=== PATIENT | male | born 1980 | race Caucasian/White ===

== ENCOUNTER 2017-08-30 19:14 | Emergency (ER) | payer MEDICAID ==
[~2017-08-30] VITALS: Ht 170.2 cm; Wt 68.0 kg
[~2017-08-30 19:14] MED LIST: IBUP-1636
[2017-08-30] MEDS ORDERED: LIDOCAINE HCL 1% 20ML VIAL (Pyxis) INJ INFIL ONE (22:00)
[2017-08-30] MEDS ORDERED: LIDOCAINE HCL 1% 20ML VIAL (Pyxis) INJ INFIL SCH (22:15)
[2017-08-30] MEDS ORDERED: PIPERACILLIN/TAZ 3.375G PREMIX 50 ML IV ONE (22:30)
[2017-08-30] MEDS ORDERED: VANCOMYCIN 1 G PREMIX 200 ML IV ONE (22:30)
[2017-08-30] MEDS ORDERED: SODIUM CHLORIDE 0.9% 1,000 ML IV ONE (22:30)
[2017-08-30 23:26] LABS: CHLORIDE 109 mEq/L (98-107)
[2017-08-31 00:02] LABS: EOSINOPHILS % 1.9 % (0.0-5.0); HEMOGLOBIN. 15.1 g/dL (14.0-18.0); MEAN CORPUSCULAR HEMOGLOBIN 36.6 pg (28.0-32.0); MEAN CORPUSCULAR VOLUME 102.2 fL (80.0-94.0); MEAN PLATELET VOLUME 8.3 fl (7.4-10.4); MONOCYTES % 9.2 % (2.0-8.0); NEUTROPHILS % 54.7 % (40.0-76.0); PLATELET 349 x1000/uL (130-400); RED BLOOD CELL COUNT 4.11 mill/uL (4.7-6.1); RED CELL DISTRIBUTION WIDTH 14.4 % (11.6-14.6)
[2017-08-31 00:03] LABS: BASOPHILS % 0.2 % (0.0-2.0)
[2017-08-31 00:25] VITALS: BP 145/97
[2017-08-31] MEDS ORDERED: LORATADINE 10MG TABLET PO SCH (09:00)
== END 2017-08-31 02:56 | disposition left against medical advice (07) ==
LOC: ER 19:14
DX: L03.115 Cellulitis of right lower limb (principal); L02.414 Cutaneous abscess of left upper limb; F17.200 Nicotine dependence, unspecified, uncomplicated; F15.10 Other stimulant abuse, uncomplicated
CPT/HCPCS: 10060; 36415; 80053; 85025; 87040; 96365; 96366; 96368; 99285; J2543; J3370; J3490; J7030

== ENCOUNTER 2017-08-31 17:34 | Emergency (ER) | payer MEDICAID ==
[~2017-08-31] VITALS: Ht 170.2 cm; Wt 73.0 kg
[2017-08-31 17:45] VITALS: BP 143/99
== END 2017-08-31 20:08 | disposition left against medical advice (07) ==
LOC: ER 18:03
DX: R21 Rash and other nonspecific skin eruption (principal); Z53.21 Procedure and treatment not carried out due to patient leaving prior to being seen by health care provider

== ENCOUNTER 2018-02-26 21:17 | Emergency (ER) | payer MEDICAID ==
[~2018-02-26] VITALS: Ht 170.2 cm; Wt 77.0 kg
[2018-02-27] MEDS ORDERED: PIPERACILLIN/TAZ 3.375G PREMIX 50 ML IV ONE (01:30)
[2018-02-27] MEDS ORDERED: SODIUM CHLORIDE 0.9% 1000ML BAG (SEPSIS BOLUS) IV ONE (01:30)
[2018-02-27] MEDS ORDERED: VANCOMYCIN 1 G PREMIX 200 ML IV ONE (01:30)
[2018-02-27 01:46] LABS: CLARITY URINE CLEAR (CLEAR); COLOR URINE YELLOW (YELLOW); KETONES URINE TRACE (NEGATIVE); LEUKOCYTE ESTERASE URINE NEGATIVE (NEGATIVE); NITRITE URINE NEGATIVE (NEGATIVE); OCCULT BLOOD URINE NEGATIVE (NEGATIVE); PROTEIN URINE NEGATIVE (NEGATIVE); UROBILINOGEN URINE 0.2 E.U./dL (0.2-1.0)
[2018-02-27 02:00] LABS: BASOPHILS % 0.5 % (0.0-2.0); EOSINOPHILS % 1.3 % (0.0-5.0); HEMATOCRIT. 38.7 % (42.0-52.0); HEMOGLOBIN. 13.2 g/dL (14.0-18.0); LYMPHOCYTES % 18.2 % (20.0-50.0); MEAN CORPUSCULAR HEMOGLOBIN 30.9 pg (28.0-32.0); MEAN CORPUSCULAR VOLUME 90.6 fL (80.0-94.0); MEAN PLATELET VOLUME 7.9 fl (7.4-10.4); MONOCYTES % 6.4 % (2.0-8.0); NEUTROPHILS % 73.6 % (40.0-76.0); PLATELET 283 x1000/uL (130-400); RED BLOOD CELL COUNT 4.27 mill/uL (4.7-6.1); RED CELL DISTRIBUTION WIDTH 14.8 % (11.6-14.6)
[2018-02-27] MEDS ORDERED: ACETAMINOPHEN 325MG TABLET PO ONE (02:00)
[2018-02-27 02:10] LABS: CHLORIDE 105 mEq/L (98-107)
[2018-02-27 02:17] LABS: PROTHROMBIN TIME 10.1 sec (9.1-11.1)
[2018-02-27] MEDS ORDERED: SODIUM CHLORIDE 0.9% 1,000 ML IV ONE (02:30)
[2018-02-27 04:27] VITALS: BP 101/52
== END 2018-02-27 06:21 | disposition home or self-care (01) ==
LOC: ER 21:17
DX: L02.416 Cutaneous abscess of left lower limb (principal); F17.200 Nicotine dependence, unspecified, uncomplicated
CPT/HCPCS: 36415; 71045; 80053; 81003; 83605; 85025; 85610; 87040; 96365; 96366; 96368; 99285; J2543; J3370; J7030

== ENCOUNTER 2019-02-09 08:36 | Inpatient (IN) | payer MEDICAID ==
[~2019-02-09] VITALS: Ht 167.6 cm; Wt 77.1 kg
[2019-02-09] MEDS ORDERED: SODIUM CHLORIDE 0.9% 1,000 ML IV ONE (09:11)
[2019-02-09 09:41] LABS: CLARITY URINE CLEAR (CLEAR); COLOR URINE YELLOW (YELLOW); KETONES URINE NEGATIVE (NEGATIVE); LEUKOCYTE ESTERASE URINE NEGATIVE (NEGATIVE); NITRITE URINE NEGATIVE (NEGATIVE); OCCULT BLOOD URINE NEGATIVE (NEGATIVE); PH URINE 6.5 (4.5-8.0); PROTEIN URINE NEGATIVE (NEGATIVE); UROBILINOGEN URINE 0.2 E.U./dL (0.2-1.0)
[2019-02-09 09:42] LABS: BASOPHILS % 0.5 % (0.0-2.0); EOSINOPHILS % 1.8 % (0.0-5.0); HEMATOCRIT. 48.5 % (42.0-52.0); HEMOGLOBIN. 16.8 g/dL (14.0-18.0); LYMPHOCYTES % 51.6 % (20.0-50.0); MEAN CORPUSCULAR HEMOGLOBIN 32.3 pg (28.0-32.0); MEAN CORPUSCULAR VOLUME 93.7 fL (80.0-94.0); MEAN PLATELET VOLUME 8.4 fl (7.4-10.4); MONOCYTES % 6.5 % (2.0-8.0); NEUTROPHILS % 39.6 % (40.0-76.0); PLATELET 256 x1000/uL (130-400); RED BLOOD CELL COUNT 5.18 mill/uL (4.7-6.1); RED CELL DISTRIBUTION WIDTH 14.5 % (11.6-14.6)
[2019-02-09] MEDS ORDERED: MECLIZINE 25MG TABLET PO ONE (09:45)
[2019-02-09] MEDS ORDERED: ONDANSETRON HCL 4MG/2ML INJ IV ONE (09:45)
[2019-02-09 09:50] LABS: CHLORIDE 107 mEq/L (98-107)
[2019-02-09 09:54] LABS: ETHANOL BLOOD < 10 mg/dL
[2019-02-09 09:56] LABS: *AMPHETAMINES SCREEN URINE NEGATIVE (NEGATIVE); *BARBITURATES SCREEN URINE NEGATIVE (NEGATIVE); *BENZODIAZEPINES SCREEN URINE NEGATIVE (NEGATIVE); *COCAINE SCREEN URINE NEGATIVE (NEGATIVE); METHADONE URINE SCREEN NEGATIVE (NEGATIVE); OPIATES URINE SCREEN NEGATIVE (NEGATIVE)
[2019-02-09 09:57] LABS: CANNABINOID URINE SCREEN NEGATIVE (NEGATIVE); PHENCYCLIDINE URINE SCREEN NEGATIVE (NEGATIVE)
[2019-02-09] MEDS ORDERED: MORPHINE SULFATE 4 MG/ML CPJ (NOT FOR IM USE) IV ONE (11:00)
[2019-02-09 12:30] VITALS: BP 126/66
[2019-02-09] MEDS ORDERED: HYDR25TA PO (12:35)
[2019-02-09] MEDS ORDERED: CLAR10 PO (12:35)
[2019-02-09] MEDS ORDERED: BICT1TAB PO (12:37)
[2019-02-09 12:44] VITALS: BP 126/66
[2019-02-09] MEDS ORDERED: MECLIZINE 25MG TABLET PO PRN (12:45)
[2019-02-09] MEDS ORDERED: ONDANSETRON HCL 4MG/2ML INJ IV PRN (12:45)
[2019-02-09] MEDS ORDERED: ACETAMINOPHEN 325MG TABLET PO PRN (12:45)
[2019-02-09] MEDS ORDERED: KETOROLAC 30MG/ML VIAL IV PRN (12:45)
[2019-02-09] MEDS ORDERED: DIPHENHYDRAMINE 50MG/ML VIAL IV NR (13:00)
[2019-02-09] MEDS ORDERED: SUMATRIPTAN SUCCINATE 6MG/0.5ML VIAL SUBCUT NR (14:00)
[2019-02-09] MEDS: SODIUM CHLORIDE 0.9% 1,000 ML IV SCH (14:31)
[2019-02-09 16:00] VITALS: BP 112/62
[2019-02-09] MEDS ORDERED: DIPHENHYDRAMINE 25MG CAPSULE PO NR (17:45)
[2019-02-09] MEDS: LORATADINE 10MG TABLET PO SCH (18:08)
[2019-02-09 20:00] VITALS: BP 106/66
[2019-02-09] MEDS: AMLODIPINE 5MG TABLET PO SCH (21:00)
[2019-02-09] MEDS: FLUTICASONE PROPIONATE 50MCG/SPRAY BOTTLE BOTHNSTRLS SCH (21:27)
[2019-02-10] VITALS: BP 93/59
[2019-02-10] MEDS: SODIUM CHLORIDE 0.9% 1,000 ML IV SCH (02:26)
[2019-02-10 04:00] VITALS: BP 100/60
[2019-02-10 07:08] LABS: BASOPHILS % 0.2 % (0.0-2.0); EOSINOPHILS % 1.6 % (0.0-5.0); HEMATOCRIT. 43.7 % (42.0-52.0); HEMOGLOBIN. 14.8 g/dL (14.0-18.0); LYMPHOCYTES % 53.8 % (20.0-50.0); MEAN CORPUSCULAR HEMOGLOBIN 31.6 pg (28.0-32.0); MEAN CORPUSCULAR VOLUME 93.6 fL (80.0-94.0); MEAN PLATELET VOLUME 8.5 fl (7.4-10.4); MONOCYTES % 5.5 % (2.0-8.0); NEUTROPHILS % 38.9 % (40.0-76.0); PLATELET 226 x1000/uL (130-400); RED BLOOD CELL COUNT 4.67 mill/uL (4.7-6.1)
[2019-02-10 07:10] LABS: CHLORIDE 108 mEq/L (98-107)
[2019-02-10 08:00] VITALS: BP 106/71
[2019-02-10] MEDS: AMLODIPINE 5MG TABLET PO SCH (09:00)
[2019-02-10] MEDS: LORATADINE 10MG TABLET PO SCH (09:33)
[2019-02-10] MEDS: FLUTICASONE PROPIONATE 50MCG/SPRAY BOTTLE BOTHNSTRLS SCH (09:33)
[2019-02-10 12:00] VITALS: BP 109/71
[2019-02-10 15:25] VITALS: BP 109/71
[2019-02-12 15:08] LABS: HIV 1 ABS Positive (Negative); HIV 2 ABS Negative (Negative); HIV SCREEN 4G Reactive (Non Reactive); INTERPRETATION HIV-1 Positive (.)
== END 2019-02-10 15:48 | disposition home or self-care (01) | DRG 48 ==
LOC: ER 08:36 → EDBEDREQ 09:13 → 5WST 10:51 → EDBEDREQ 10:56 → ENRESERV 11:51
PROVIDERS: ADMIT Internal Medicine; ATTEND Internal Medicine
DX: G90.8 Other disorders of autonomic nervous system (principal); F10.10 Alcohol abuse, uncomplicated; F15.90 Other stimulant use, unspecified, uncomplicated; F17.210 Nicotine dependence, cigarettes, uncomplicated; I10 Essential (primary) hypertension; Z91.14 Patient's other noncompliance with medication regimen; Z79.899 Other long term (current) drug therapy; Z71.6 Tobacco abuse counseling; Z21 Asymptomatic human immunodeficiency virus [HIV] infection status
CPT/HCPCS: 36415; 71045; 80048; 80305; 80320; 81003; 83605; 83880; 84145; 84484; 86701; 86702; 87389; 93005; 96374; 96375; 99285; J1200; J2270; J2405; J3030; J7030; J8597; G0480

== ENCOUNTER 2019-07-22 17:37 | Emergency (ER) | payer MEDICAID ==
[~2019-07-22] VITALS: Ht 170.2 cm; Wt 75.0 kg
[~2019-07-22 17:37] MED LIST changes: +BICT1TAB PO; +CLAR10 PO; +HYDR25TA PO
[2019-07-22] MEDS ORDERED: IPRATROPIUM BROMIDE (0.02%) 0.5MG/2.5ML NEB HHN STA (17:57)
[2019-07-22] MEDS ORDERED: ALBUTEROL (0.083%) 2.5MG/3ML NEB HHN STA (17:57)
[2019-07-22] MEDS ORDERED: DIPHENHYDRAMINE 50MG/ML VIAL IV ONE (18:00)
[2019-07-22] MEDS ORDERED: METHYLPREDNISOLONE SOD SUCC 125 MG/2 ML VIAL IV ONE (18:00)
[2019-07-22] MEDS ORDERED: FAMOTIDINE 20MG/2ML VIAL IV ONE (18:00)
[2019-07-22] MEDS ORDERED: EPINEPHRINE 0.1MG/ML (1:10,000) 10ML SYR ONE (18:23)
[2019-07-22] MEDS ORDERED: EPINEPHRINE 1:1000 1 MG/ML AMP INJ ONE (18:30)
[2019-07-22 19:55] VITALS: BP 137/89
== END 2019-07-22 19:43 | disposition home or self-care (01) ==
LOC: ER 17:37
DX: T78.2XXA Anaphylactic shock, unspecified, initial encounter (principal); L50.0 Allergic urticaria
CPT/HCPCS: 93005; 94640; 96374; 96375; 99283; 99406; J1200; J2930; J3490; J7611; Z7610

== ENCOUNTER 2019-12-14 18:20 | Emergency (ER) | payer MEDICAID ==
[~2019-12-14] VITALS: Ht 170.2 cm; Wt 75.0 kg
[2019-12-14 18:25] VITALS: BP 139/82
[2019-12-14] MEDS ORDERED: CEFTRIAXONE SODIUM 1 G/VIAL IM ONE (19:00)
== END 2019-12-14 19:18 | disposition home or self-care (01) ==
LOC: ER 18:20
DX: H66.93 Otitis media, unspecified, bilateral (principal); I10 Essential (primary) hypertension; Z91.018 Allergy to other foods; Z91.09 Other allergy status, other than to drugs and biological substances
CPT/HCPCS: 96372; 99283; J0696

== ENCOUNTER 2020-01-04 15:07 | Emergency (ER) | payer MEDICAID ==
[~2020-01-04] VITALS: Ht 170.2 cm; Wt 72.0 kg
[2020-01-04 15:12] VITALS: BP 131/74
== END 2020-01-04 16:47 | disposition home or self-care (01) ==
LOC: ER 15:15
DX: S69.81XA Other specified injuries of right wrist, hand and finger(s), initial encounter (principal); S69.82XA Other specified injuries of left wrist, hand and finger(s), initial encounter; Z91.018 Allergy to other foods; Z91.048 Other nonmedicinal substance allergy status; X50.0XXA Overexertion from strenuous movement or load, initial encounter; Y93.89 Activity, other specified; Y92.39 Other specified sports and athletic area as the place of occurrence of the external cause; Y99.8 Other external cause status
CPT/HCPCS: 99281

== ENCOUNTER 2020-02-13 15:36 | Emergency (ER) | payer MEDICAID ==
[~2020-02-13] VITALS: Ht 170.2 cm; Wt 75.0 kg
[2020-02-13 18:05] LABS: BASOPHILS % 0.3 % (0.0-2.0); EOSINOPHILS % 0.5 % (0.0-5.0); HEMATOCRIT. 40.3 % (42.0-52.0); HEMOGLOBIN. 13.8 g/dL (14.0-18.0); LYMPHOCYTES % 46.8 % (20.0-50.0); MEAN CORPUSCULAR HEMOGLOBIN 31.5 pg (28.0-32.0); MEAN CORPUSCULAR VOLUME 91.9 fL (80.0-94.0); MEAN PLATELET VOLUME 7.9 fl (7.4-10.4); MONOCYTES % 8.9 % (2.0-8.0); NEUTROPHILS % 43.5 % (40.0-76.0); PLATELET 198 x1000/uL (130-400); RED BLOOD CELL COUNT 4.38 mill/uL (4.7-6.1); RED CELL DISTRIBUTION WIDTH 13.2 % (11.6-14.6)
[2020-02-13 18:11] LABS: CHLORIDE 105 mEq/L (98-107)
[2020-02-13] MEDS ORDERED: CEFTRIAXONE SODIUM 1 G/VIAL IM ONE (18:45)
[2020-02-13] MEDS ORDERED: LIDOCAINE HCL 1% 20ML VIAL (Pyxis) INJ INFIL ONE (18:45)
[2020-02-13] MEDS ORDERED: SULFAMETHOXAZOLE/TRIMETHOPRIM 800/160MG TABLET PO ONE (18:45)
[2020-02-13 19:49] VITALS: BP 148/93
== END 2020-02-13 19:49 | disposition home or self-care (01) ==
LOC: ER 15:36
DX: A49.02 Methicillin resistant Staphylococcus aureus infection, unspecified site (principal); Z21 Asymptomatic human immunodeficiency virus [HIV] infection status; Z91.011 Allergy to milk products; Z91.018 Allergy to other foods; Z91.013 Allergy to seafood; Z91.09 Other allergy status, other than to drugs and biological substances; Z87.891 Personal history of nicotine dependence
CPT/HCPCS: 36415; 80053; 85025; 93005; 96372; 99284; J0696; J3490

== ENCOUNTER 2020-06-22 08:48 | Inpatient (IN) | payer BC, MEDICAID ==
[~2020-06-22] VITALS: Ht 170.2 cm; Wt 86.9 kg
[2020-06-22 10:05] LABS: BASOPHILS % 0.3 % (0.0-2.0); EOSINOPHILS % 0.2 % (0.0-5.0); HEMOGLOBIN. 14.5 g/dL (14.0-18.0); LYMPHOCYTES % 38.7 % (20.0-50.0); MEAN CORPUSCULAR HEMOGLOBIN 31.2 pg (28.0-32.0); MEAN CORPUSCULAR VOLUME 90.3 fL (80.0-94.0); MEAN PLATELET VOLUME 8.2 fl (7.4-10.4); MONOCYTES % 6.1 % (2.0-8.0); NEUTROPHILS % 54.7 % (40.0-76.0); PLATELET 275 x1000/uL (130-400); RED BLOOD CELL COUNT 4.65 mill/uL (4.7-6.1); RED CELL DISTRIBUTION WIDTH 15.4 % (11.6-14.6)
[2020-06-22 10:06] LABS: CHLORIDE 106 mEq/L (98-107)
[2020-06-22 10:07] LABS: CANNABINOID URINE SCREEN NEGATIVE (NEGATIVE); METHADONE URINE SCREEN NEGATIVE (NEGATIVE); OPIATES URINE SCREEN NEGATIVE (NEGATIVE); PHENCYCLIDINE URINE SCREEN NEGATIVE (NEGATIVE)
[2020-06-22 10:08] LABS: *AMPHETAMINES SCREEN URINE NEGATIVE (NEGATIVE); *BARBITURATES SCREEN URINE NEGATIVE (NEGATIVE); *BENZODIAZEPINES SCREEN URINE NEGATIVE (NEGATIVE); *COCAINE SCREEN URINE NEGATIVE (NEGATIVE)
[2020-06-22 10:10] LABS: ETHANOL BLOOD < 10 mg/dL
[2020-06-22] MEDS ORDERED: ONDANSETRON HCL 4MG/2ML INJ IV STA (10:36)
[2020-06-22] MEDS ORDERED: MORPHINE SULFATE 4 MG/ML CPJ (NOT FOR IM USE) IV STA (10:36)
[2020-06-22] MEDS ORDERED: ASPIRIN 81MG TABLET PO ONE (10:45)
[2020-06-22] MEDS ORDERED: NITROGLYCERIN OINT 1GM/INCH UDPKT TD ONE (10:45)
[2020-06-22 11:05] LABS: PARTIAL THROMBOPLASTIN TIME 25.5 sec (23.4-31.0); PROTHROMBIN TIME 10.2 sec (9.6-11.0)
[2020-06-22] MEDS ORDERED: SODIUM CHLORIDE 0.9% 1,000 ML IV ONE (11:15)
[2020-06-22] MEDS ORDERED: NICARDIPINE 100MCG/ML 10ML VIAL (CATH LAB) IV ONE (12:00)
[2020-06-22] MEDS ORDERED: HEPARIN SODIUM 1,000 UNIT/1ML VIAL IV ONE (12:00)
[2020-06-22] MEDS ORDERED: NITROGLYCERIN 50MCG/ML 10ML VIAL (CATH LAB) IV ONE (12:00)
[2020-06-22] MEDS ORDERED: LIDOCAINE HCL 1% 20ML VIAL (Pyxis) INJ ONE (12:02)
[2020-06-22] MEDS ORDERED: IODIXANOL 320MG/ML 100 ML BOTTLE IV ONE (12:02)
[2020-06-22] MEDS ORDERED: IOHEXOL-300 100 ML BOTTLE ONE ×2 (12:03→12:44)
[2020-06-22] MEDS ORDERED: MIDAZOLAM HCL 2 MG/2 ML VIAL ONE (12:08)
[2020-06-22] MEDS ORDERED: FENTANYL CITRATE/PF 50MCG/ML 2ML VIAL ONE (12:08)
[2020-06-22] MEDS ORDERED: ATROPINE SULFATE 0.1MG/ML 10ML DISP.SYRIN ONE (12:08)
[2020-06-22] MEDS ORDERED: EPTIFIBATIDE 2 MG/ML 10ML VIAL IV ONE (12:31)
[2020-06-22] MEDS ORDERED: EPTIFIBATIDE 100 ML IV ONE (12:31)
[2020-06-22] MEDS ORDERED: TICAGRELOR 90 MG TABLET PO ONE (13:02)
[2020-06-22 13:52] VITALS: BP 131/95
[2020-06-22 14:02] VITALS: BP 195/46
[2020-06-22] MEDS ORDERED: ONDANSETRON HCL 4MG/2ML INJ IV PRN (14:30)
[2020-06-22] MEDS ORDERED: CLONIDINE 0.1MG TABLET PO PRN (14:30)
[2020-06-22] MEDS ORDERED: IPRATROPIUM/ALBUTEROL 0.5-3(2.5)MG/3ML NEB NEB PRN (14:30)
[2020-06-22] MEDS ORDERED: LORAZEPAM 0.5MG TABLET PO PRN (14:30)
[2020-06-22] MEDS ORDERED: NITROGLYCERIN 0.4MG TABLET SL SL PRN (14:30)
[2020-06-22] MEDS ORDERED: GUAIFENESIN 200MG/10ML SUGAR FREE UDC PO PRN (14:30)
[2020-06-22] MEDS ORDERED: NA PHOS,M-B/NA PHOS,DI-BA ENEMA 118ML PR PRN (14:30)
[2020-06-22] MEDS ORDERED: MAGNESIUM/ALUMINUM HYDROXIDE/SIMETHICONE 30ML UDC PO PRN (14:30)
[2020-06-22] MEDS ORDERED: ACETAMINOPHEN 325MG TABLET PO PRN ×2 (14:30)
[2020-06-22] MEDS ORDERED: ENOXAPARIN 40MG/0.4ML SYR SUBCUT SCH (14:30)
[2020-06-22] MEDS ORDERED: DOCUSATE SODIUM 100MG CAPSULE PO PRN (14:30)
[2020-06-22] MEDS: TRAMADOL 50MG TABLET PO PRN (15:02)
[2020-06-22] MEDS ORDERED: GABA-529 MT (15:18)
[2020-06-22] MEDS ORDERED: DARU1TAB3 PO (15:18)
[2020-06-22 16:00] VITALS: BP 141/97
[2020-06-22 18:00] VITALS: BP 162/97
[2020-06-22 20:00] VITALS: BP 139/86
[2020-06-22] MEDS ORDERED: ATORVASTATIN CALCIUM 40MG TABLET PO SCH (21:00)
[2020-06-22] MEDS ORDERED: ZOLPIDEM TARTRATE 5MG TABLET PO PRN (21:00)
[2020-06-22 22:00] VITALS: BP 141/80
[2020-06-22] MEDS: ASCORBIC ACID 500 MG TABLET PO SCH (22:09)
[2020-06-22] MEDS: METOPROLOL TARTRATE 25MG TABLET PO SCH (22:10)
[2020-06-22] MEDS: FAMOTIDINE 20MG TABLET PO SCH (22:10)
[2020-06-23] VITALS (7 sets, daily range): BP systolic 109–135; BP diastolic 65–90
[2020-06-23 00:56] LABS: CREATINE KINASE MB FRACTION 16.2 ng/mL (0.5-3.6)
[2020-06-23 06:02] LABS: CHLORIDE 102 mEq/L (98-107)
[2020-06-23 06:14] LABS: PHOSPHORUS 3.3 mg/dL (2.5-4.9)
[2020-06-23 06:16] LABS: CREATINE KINASE 197 IU/L (39-308)
[2020-06-23 06:20] LABS: CREATINE KINASE MB FRACTION 15.5 ng/mL (0.5-3.6)
[2020-06-23 06:23] LABS: BASOPHILS % 0.3 % (0.0-2.0); EOSINOPHILS % 0.3 % (0.0-5.0); HEMATOCRIT. 39.2 % (42.0-52.0); HEMOGLOBIN. 13.7 g/dL (14.0-18.0); LYMPHOCYTES % 27.1 % (20.0-50.0); MEAN CORPUSCULAR HEMOGLOBIN 31.8 pg (28.0-32.0); MEAN PLATELET VOLUME 8.1 fl (7.4-10.4); MONOCYTES % 10.9 % (2.0-8.0); NEUTROPHILS % 61.4 % (40.0-76.0); PLATELET 242 x1000/uL (130-400); RED CELL DISTRIBUTION WIDTH 15.6 % (11.6-14.6)
[2020-06-23] MEDS: ASCORBIC ACID 500 MG TABLET PO SCH (08:48)
[2020-06-23] MEDS: FAMOTIDINE 20MG TABLET PO SCH (08:48)
[2020-06-23] MEDS: METOPROLOL TARTRATE 25MG TABLET PO SCH (08:48)
[2020-06-23] MEDS: TRAMADOL 50MG TABLET PO PRN (08:49)
[2020-06-23] MEDS ORDERED: CLOPIDOGREL 75MG TABLET PO SCH (09:00)
[2020-06-23] MEDS ORDERED: ZINC SULFATE 220 MG ( 50 ) CAPSULE PO SCH (09:00)
[2020-06-23] MEDS ORDERED: AMLODIPINE 10MG TABLET PO SCH (09:00)
[2020-06-23] MEDS ORDERED: ASPIRIN 325MG EC TABLET PO SCH (09:00)
== END 2020-06-23 11:28 | disposition home or self-care (01) | DRG 247 ==
LOC: ER 08:48 → 3WST 11:01 → EDBEDREQ 11:01 → EDBEDREQSVC 11:01 → EDBEDREQ 11:02
PROVIDERS: ADMIT Internal Medicine; ATTEND Internal Medicine
PROC: 027034Z Dilation of Coronary Artery, One Artery with Drug-eluting Intraluminal Device, Percutaneous Approach (ICD-10-PCS; principal; 2020-06-23)
PROC: 4A023N7 Measurement of Cardiac Sampling and Pressure, Left Heart, Percutaneous Approach (ICD-10-PCS; 2020-06-23)
PROC: B2111ZZ Fluoroscopy of Multiple Coronary Arteries using Low Osmolar Contrast (ICD-10-PCS; 2020-06-23)
PROC: B2151ZZ Fluoroscopy of Left Heart using Low Osmolar Contrast (ICD-10-PCS; 2020-06-23)
DX: I21.29 ST elevation (STEMI) myocardial infarction involving other sites (principal); F10.10 Alcohol abuse, uncomplicated; F19.11 Other psychoactive substance abuse, in remission; Z20.828 Contact with and (suspected) exposure to other viral communicable diseases; I25.10 Atherosclerotic heart disease of native coronary artery without angina pectoris; I25.2 Old myocardial infarction; Z82.49 Family history of ischemic heart disease and other diseases of the circulatory system; Z88.8 Allergy status to other drugs, medicaments and biological substances; Z91.018 Allergy to other foods; Z79.899 Other long term (current) drug therapy; Z91.038 Other insect allergy status
CPT/HCPCS: 36415; 71045; 80053; 80061; 80305; 80320; 82550; 82553; 83036; 83735; 83880; 84100; 84484; 85025; 85347; 87426; 92928; 93005; 93306; 93458; 93970; 96374; 99291; C1725; C1760; C1769; C1874; C1887; C1893; J0461; J1327; J1644; J2250; J2270; J2405; J3010; J3490; J7030; Q9967; G0480; J8499

== ENCOUNTER 2020-06-25 09:33 | Emergency (ER) | payer BC, MEDICAID ==
[~2020-06-25] VITALS: Ht 170.2 cm; Wt 82.0 kg
[~2020-06-25 09:33] MED LIST changes: +DARU1TAB3 PO; +GABA-529 MT
[2020-06-25] MEDS ORDERED: ONDANSETRON HCL 4MG/2ML INJ IV STA (10:23)
[2020-06-25] MEDS ORDERED: FAMOTIDINE 20MG/2ML VIAL IV STA (10:23)
[2020-06-25] MEDS ORDERED: MORPHINE SULFATE 4 MG/ML CPJ (NOT FOR IM USE) IV STA (10:23)
[2020-06-25 10:25] LABS: BASOPHILS % 0.2 % (0.0-2.0); EOSINOPHILS % 0.8 % (0.0-5.0); HEMATOCRIT. 39.5 % (42.0-52.0); HEMOGLOBIN. 13.7 g/dL (14.0-18.0); MEAN CORPUSCULAR HEMOGLOBIN 31.5 pg (28.0-32.0); MEAN CORPUSCULAR VOLUME 90.8 fL (80.0-94.0); MEAN PLATELET VOLUME 8.1 fl (7.4-10.4); MONOCYTES % 8.3 % (2.0-8.0); NEUTROPHILS % 56.7 % (40.0-76.0); PLATELET 225 x1000/uL (130-400); RED BLOOD CELL COUNT 4.36 mill/uL (4.7-6.1); RED CELL DISTRIBUTION WIDTH 15.5 % (11.6-14.6)
[2020-06-25 10:30] LABS: CHLORIDE 105 mEq/L (98-107)
[2020-06-25] MEDS ORDERED: SODIUM CHLORIDE 0.9% 1,000 ML IV ONE (10:30)
[2020-06-25 10:33] LABS: PARTIAL THROMBOPLASTIN TIME 27.1 sec (23.4-31.0); PROTHROMBIN TIME 10.1 sec (9.6-11.0)
[2020-06-25 10:34] LABS: ETHANOL BLOOD < 10 mg/dL
[2020-06-25 10:42] LABS: *AMPHETAMINES SCREEN URINE NEGATIVE (NEGATIVE); *BARBITURATES SCREEN URINE NEGATIVE (NEGATIVE); *BENZODIAZEPINES SCREEN URINE NEGATIVE (NEGATIVE); *COCAINE SCREEN URINE NEGATIVE (NEGATIVE)
[2020-06-25 10:43] LABS: CANNABINOID URINE SCREEN NEGATIVE (NEGATIVE); METHADONE URINE SCREEN NEGATIVE (NEGATIVE); OPIATES URINE SCREEN NEGATIVE (NEGATIVE); PHENCYCLIDINE URINE SCREEN NEGATIVE (NEGATIVE)
[2020-06-25] MEDS ORDERED: MAGNESIUM/ALUMINUM HYDROXIDE/SIMETHICONE 30ML UDC PO ONE (14:15)
[2020-06-25 14:20] VITALS: BP 136/61
== END 2020-06-25 15:15 | disposition home or self-care (01) ==
LOC: ER 09:37
DX: R07.89 Other chest pain (principal); R10.10 Upper abdominal pain, unspecified; J98.11 Atelectasis; I25.10 Atherosclerotic heart disease of native coronary artery without angina pectoris; I21.3 ST elevation (STEMI) myocardial infarction of unspecified site; Z98.61 Coronary angioplasty status
CPT/HCPCS: 36415; 71045; 80053; 80305; 80320; 83690; 83880; 84484; 85025; 85610; 85730; 93005; 96361; 96374; 96375; 99285; J2270; J2405; J3490; J7030; G0480

== ENCOUNTER 2020-09-20 12:46 | Emergency (ER) | payer BC, MEDICAID ==
[~2020-09-20] VITALS: Ht 170.2 cm; Wt 83.0 kg
[~2020-09-20 12:46] MED LIST changes: +ASPI-1160 PO; +CLOP75TA15 PO; -IBUP-1636; +LIP40 PO; +PANT40TA51 PO
[2020-09-20] MEDS ORDERED: ASPIRIN 81MG TABLET PO ONE (13:15)
[2020-09-20] MEDS: NITROGLYCERIN 0.4MG TABLET SL SL PRN ×3 (14:06→16:16)
[2020-09-20 14:19] LABS: BASOPHILS % 0.2 % (0.0-2.0); HEMATOCRIT. 47.1 % (42.0-52.0); HEMOGLOBIN. 15.7 g/dL (14.0-18.0); LYMPHOCYTES % 32.7 % (20.0-50.0); MEAN CORPUSCULAR HEMOGLOBIN 32.3 pg (28.0-32.0); MEAN CORPUSCULAR VOLUME 96.8 fL (80.0-94.0); MEAN PLATELET VOLUME 8.4 fl (7.4-10.4); MONOCYTES % 6.3 % (2.0-8.0); NEUTROPHILS % 60.8 % (40.0-76.0); PLATELET 269 x1000/uL (130-400); RED BLOOD CELL COUNT 4.87 mill/uL (4.7-6.1); RED CELL DISTRIBUTION WIDTH 15.4 % (11.6-14.6)
[2020-09-20 14:25] LABS: CHLORIDE 104 mEq/L (98-107)
[2020-09-20 14:29] LABS: ETHANOL BLOOD < 10 mg/dL
[2020-09-20 14:58] LABS: *AMPHETAMINES SCREEN URINE NEGATIVE (NEGATIVE); *BARBITURATES SCREEN URINE NEGATIVE (NEGATIVE); *BENZODIAZEPINES SCREEN URINE NEGATIVE (NEGATIVE); *COCAINE SCREEN URINE NEGATIVE (NEGATIVE)
[2020-09-20 14:59] LABS: CANNABINOID URINE SCREEN NEGATIVE (NEGATIVE); METHADONE URINE SCREEN NEGATIVE (NEGATIVE); OPIATES URINE SCREEN NEGATIVE (NEGATIVE); PHENCYCLIDINE URINE SCREEN NEGATIVE (NEGATIVE)
[2020-09-20 18:43] VITALS: BP 136/82
== END 2020-09-20 18:46 | disposition home or self-care (01) ==
LOC: ER 13:53
DX: R07.89 Other chest pain (principal); I25.2 Old myocardial infarction; Z98.890 Other specified postprocedural states; Z79.899 Other long term (current) drug therapy; Z91.013 Allergy to seafood; Z91.018 Allergy to other foods
CPT/HCPCS: 36415; 71045; 76705; 80053; 80305; 80320; 83690; 83880; 84484; 85025; 93005; 99285; Z7610; G0480

== ENCOUNTER 2020-11-21 16:15 | Emergency (ER) | payer BC, MEDICAID ==
[~2020-11-21] VITALS: Ht 167.6 cm; Wt 85.0 kg
[2020-11-21] MEDS ORDERED: KETOROLAC 30MG/ML VIAL IM ONE (17:00)
[2020-11-21 17:22] VITALS: BP 141/88
[2020-11-21] MEDS ORDERED: MED4 MT (17:43)
[2020-11-21] MEDS ORDERED: CYCL10TA7 MT (17:43)
[2020-11-21] MEDS ORDERED: HYDR-4001 MT (17:43)
== END 2020-11-21 17:58 | disposition home or self-care (01) ==
LOC: ER 16:15
DX: M54.5 Low back pain (principal); Z91.011 Allergy to milk products; Z91.018 Allergy to other foods; Z91.013 Allergy to seafood; Z91.09 Other allergy status, other than to drugs and biological substances
CPT/HCPCS: 72100; 96372; 99283; J1885

== ENCOUNTER 2021-04-13 13:34 | Emergency (ER) | payer BC, MEDICAID, OTHER ==
[~2021-04-13] VITALS: Ht 170.2 cm; Wt 77.0 kg
[~2021-04-13 13:34] MED LIST changes: +CYCL10TA7 MT; +HYDR-4001 MT; +MED4 MT
[2021-04-13] MEDS ORDERED: KETOROLAC 60MG/2ML VIAL IM ONE (15:00)
[2021-04-13] MEDS ORDERED: ACET-2708 MT (16:09)
[2021-04-13 16:27] VITALS: BP 127/94
== END 2021-04-13 16:28 | disposition home or self-care (01) ==
LOC: ER 13:34
DX: J06.9 Acute upper respiratory infection, unspecified (principal); M25.531 Pain in right wrist; I25.2 Old myocardial infarction; I10 Essential (primary) hypertension; Z20.822 Contact with and (suspected) exposure to COVID-19; Z91.038 Other insect allergy status; Z91.018 Allergy to other foods; Z79.899 Other long term (current) drug therapy
CPT/HCPCS: 73110; 96372; 99284; C9803; J1885; U0003; U0005

== ENCOUNTER 2023-06-27 13:38 | Emergency (ER) | payer MEDICAID ==
[~2023-06-27] VITALS: Ht 170.2 cm; Wt 75.0 kg
[~2023-06-27 13:38] MED LIST changes: +ACET-2708 MT; +CYCL10TA21 MT; -CYCL10TA7 MT
[2023-06-27 14:04] VITALS: O2SAT 97
[2023-06-27] MEDS ORDERED: KETOROLAC 30MG/ML VIAL IM ONE (15:00)
[2023-06-27] MEDS ORDERED: HYDROCODONE/ACETAMINOPHEN 5/325MG TABLET PO ONE (15:00)
[2023-06-27] MEDS ORDERED: LIDOCAINE HCL/PF 1% 10 MG/ML 5ML VIAL INFIL ONE (15:00)
[2023-06-27] MEDS ORDERED: TETANUS, DIPHTHERIA, PERTUSSIS VAC/PF 0.5ML (>10YR OLD) IM ONE (15:00)
[2023-06-27] MEDS ORDERED: BACITRACIN ZINC OINT UDPKT TOP ONE (15:00)
[2023-06-27] MEDS ORDERED: CEPH500C2 MT (17:01)
[2023-06-27] MEDS ORDERED: MUPI15CR11 TP (17:01)
[2023-06-27 17:13] VITALS: BP 156/99; PULSE 60; RESP 15; TEMP 98.6
== END 2023-06-27 17:16 | disposition home or self-care (01) ==
LOC: ER 13:38
DX: S61.212A Laceration without foreign body of right middle finger without damage to nail, initial encounter (principal); I11.0 Hypertensive heart disease with heart failure; I50.9 Heart failure, unspecified; I25.2 Old myocardial infarction; Z98.890 Other specified postprocedural states; X58.XXXA Exposure to other specified factors, initial encounter; Y93.89 Activity, other specified; Y92.89 Other specified places as the place of occurrence of the external cause; Y99.8 Other external cause status
CPT/HCPCS: 99284; 73130; 90715; 12004; 90471; 96372; J1885; J3490

== ENCOUNTER 2023-07-07 13:59 | Emergency (ER) | payer MEDICAID ==
[~2023-07-07] VITALS: Ht 177.8 cm; Wt 81.0 kg
[~2023-07-07 13:59] MED LIST changes: +CEPH500C2 MT; +MUPI15CR11 TP
[2023-07-07 14:04] VITALS: BP 159/93; PULSE 58; RESP 20; TEMP 97.7; O2SAT 99
== END 2023-07-07 15:48 | disposition home or self-care (01) ==
LOC: ER 13:59
DX: Z48.02 Encounter for removal of sutures (principal); Z53.21 Procedure and treatment not carried out due to patient leaving prior to being seen by health care provider

== ENCOUNTER 2023-07-09 13:12 | Emergency (ER) | payer MEDICAID ==
[~2023-07-09] VITALS: Ht 170.2 cm; Wt 75.0 kg
[2023-07-09 13:16] VITALS: BP 119/86; PULSE 67; RESP 16; TEMP 98; O2SAT 98
[2023-07-09] MEDS ORDERED: SULF1TAB48 MT (13:31)
== END 2023-07-09 13:38 | disposition home or self-care (01) ==
LOC: ER 13:12
DX: S61.411D Laceration without foreign body of right hand, subsequent encounter (principal); I10 Essential (primary) hypertension; I25.2 Old myocardial infarction; Z79.899 Other long term (current) drug therapy; X58.XXXD Exposure to other specified factors, subsequent encounter
CPT/HCPCS: 99283

== ENCOUNTER 2023-12-25 10:26 | Emergency (ER) | payer BC, MEDICAID ==
[~2023-12-25] VITALS: Ht 170.2 cm; Wt 72.6 kg
[~2023-12-25 10:26] MED LIST changes: +SULF1TAB48 MT
[2023-12-25 10:48] VITALS: BP 139/94; PULSE 110; RESP 16; TEMP 98.6; O2SAT 100
[2023-12-25] MEDS ORDERED: CEPH500T MT (11:56)
[2023-12-25] MEDS: CEFTRIAXONE SODIUM 1G VIAL IM ONE (12:00)
== END 2023-12-25 12:58 | disposition home or self-care (01) ==
LOC: ER 10:26
DX: L03.115 Cellulitis of right lower limb (principal); I11.9 Hypertensive heart disease without heart failure; I25.2 Old myocardial infarction; Z98.890 Other specified postprocedural states; Z91.013 Allergy to seafood; Z91.018 Allergy to other foods; Z91.011 Allergy to milk products; Z79.899 Other long term (current) drug therapy
CPT/HCPCS: 99285; 93971; 96372; J0696

== ENCOUNTER 2024-05-15 15:22 | Emergency (ER) | payer BC ==
[~2024-05-15] VITALS: Ht 170.2 cm; Wt 68.0 kg
[~2024-05-15 15:22] MED LIST changes: +CEPH500T MT; -MED4 MT; +METH4TAB95 MT
[2024-05-15 15:33] VITALS: BP 154/93; PULSE 105; RESP 16; TEMP 97.6; O2SAT 100
== END 2024-05-15 16:00 | disposition left against medical advice (07) ==
LOC: ER 15:22
DX: R07.89 Other chest pain (principal); R06.02 Shortness of breath; I10 Essential (primary) hypertension; I25.10 Atherosclerotic heart disease of native coronary artery without angina pectoris; I25.2 Old myocardial infarction; Z79.899 Other long term (current) drug therapy; Z91.013 Allergy to seafood; Z91.038 Other insect allergy status
CPT/HCPCS: 93005; 99283